=== PATIENT | female | born 1975 | race Caucasian/White ===

== ENCOUNTER 2016-08-07 20:27 | Emergency (ER) | payer BC, OTHER ==
[~2016-08-07] VITALS: Ht 167.6 cm; Wt 99.8 kg
[2016-08-07 20:39] VITALS: BP 120/68
--- NOTE | 2016-08-07 20:47 | NUR ---
TO ER BED 7
--- NOTE | 2016-08-07 20:59 | NUR ---
PATIENT PRESENTS TO ED WITH C/O RT FOOT PAIN, S/P STEPPED ON A PLASTIC CONTAINER 1530 HOUR.UTD WITH TETANUS VACCINES. PT DENIES N/V/D; SKIN IS PINK/WARM/DRY; AAOX4 WITH EVEN AND STEADY GAIT; LUNGS CLEAR BL; HR EVEN AND REGULAR; PT DENIES ANY FEVER, CP, SOB, OR COUGH AT THIS TIME; PATIENT STATES PAIN OF 0/10 AT THIS TIME; VSS; PATIENT POSITIONED FOR COMFORT; HOB ELEVATED; BEDRAILS UP X2; BED DOWN. ER MD MADE AWARE OF PT STATUS.
--- NOTE | 2016-08-07 22:00 | NUR ---
Patient being evaluated by physician at bedside.
--- NOTE | 2016-08-07 22:20 | NUR ---
US AT BEDSIDE
[2016-08-07] MEDS ORDERED: NEOMYCIN/POLYMYXIN/BACITRACIN 0.9 GM/1 PKT TP ONE (22:43)
--- NOTE | 2016-08-07 22:51 | NUR ---
XRAY AT BEDSIDE
--- NOTE | 2016-08-07 23:34 | NUR ---
Patient discharged with v/s stable. Written and verbal after care instructions given and explained. Patient alert, oriented and verbalized understanding of instructions. Ambulatory with steady gait. All questions addressed prior to discharge. ID band removed. Patient advised to follow up with PMD. Rx of keflex given. Patient educated on indication of medication including possible reaction and side effects. Opportunity to ask questions provided and answered. DISCHARGED BY DR KHAN
[2016-08-07 23:35] VITALS: BP 120/68
== END 2016-08-07 23:34 | disposition home or self-care (01) ==
LOC: MED 20:27
DX: S91.331A Puncture wound without foreign body, right foot, initial encounter (principal); W22.8XXA Striking against or struck by other objects, initial encounter; Y93.01 Activity, walking, marching and hiking; Y92.89 Other specified places as the place of occurrence of the external cause; Y99.8 Other external cause status
CPT/HCPCS: 73630; 76881; 99284; Q0092